=== PATIENT | male | born 1955 | race Caucasian/White ===

== ENCOUNTER 2017-01-10 11:21 | Emergency (ER) | payer OTHER ==
[2017-01-10 11:28] VITALS: BP 142/91; PULSE 87; RESP 20; TEMP 97.4
--- NOTE | 2017-01-10 12:39 | ED ---
Extremity Problem HPI - General Chief complaint: Extremity Injury, Lower Stated complaint: LEFT LEG PAIN Time Seen by Provider: 01/10/17 12:08 Source: patient Mode of arrival: ambulatory Limitations: no limitations - History of Present Illness Initial comments: Patient is a 61-year-old white male presenting to the emergency department with complains of left lower extremity swelling progressively getting worse over the last 4 days. Patient states that swelling causes pain particularly to his left calf when walking. No pain at rest. Patient states he had a full physical with his primary physician on Wednesday and was noted to have minimal swelling of his left knee. Patient was instructed to take Aleve as needed. Patient states that he twisted his knee in October of this year and was using a knee brace for a while but not recently. Patient denies recent trauma or injury to left lower extremity. Patient denies fevers, chills, nausea, vomiting, shortness of breath, chest pain, palpitations, or numbness or tingling. Patient denies recent travel or prolonged sitting. Patient denies history of congenital or familial blood clotting disorder. Patient reports history of skin cancer, removed. Patient has a remote history of smoking. MD Complaint: extremity pain, extremity swelling Onset/Timin -: days(s) Location: left, lower extremity History of Same: No Quality: aching Consistency: constant Improves with: nothing Worsens with: walking Associated Symptoms: denies other symptoms - Related Data Home Medications Medication Instructions Recorded Confirmed Cialis(Unkowndose) 1 tab PO PRN 03/22/14 03/26/14 Allergies Allergy/AdvReac Type Severity Reaction Status Date / Time No Known Allergies Allergy Verified 03/22/14 14:55 Review of Systems ROS Statement: Those systems with pertinent positive or pertinent negative responses have been documented in the HPI. ROS Other: All systems not noted in ROS Statement are negative. Past Medical History Past Medical History: No Reported History History of Any Multi-Drug Resistant Organisms: None Reported Past Surgical History: Back Surgery, Orthopedic Surgery Additional Past Surgical History / Comment(s): RT HAND SX TO REMOVE SCAR TISSUE Past Anesthesia/Blood Transfusion Reactions: No Reported Reaction Past Psychological History: No Psychological Hx Reported Smoking Status: Former smoker Past Alcohol Use History: None Reported Past Drug Use History: None Reported General Exam - General Exam Comments Initial Comments: GENERAL: Pt awake and alert, well-appearing, well-nourished, and in no acute distress. HEAD: Atraumatic, normocephalic. EYES: Pupils equal, round, and reactive to light, extraocular movements intact, sclera anicteric, conjunctiva are normal. ENT: Oropharynx clear without exudates. Moist mucous membranes. Tongue smooth, pink, no lesions, protrudes in midline. NECK:Normal range of motion, supple without lymphadenopathy or JVD. LUNGS: Breath sounds clear to auscultation bilaterally. No wheezes, rales, or rhonchi. HEART: Heart S1, S2, no S3 or S4. Regular rate and rhythm. No murmurs, rubs or gallops. ABDOMEN: Soft, nontender, nondistended, normoactive bowel sounds. No guarding, no rebound. No masses or organomegaly appreciated. EXTREMITIES: 2+ peripheral pulses. Left lower extremity 2+ edema from just below the knee to toe, warm to touch, with positive Homans sign. Left calf tenderness. Slight ecchymosis noted to left ankle. NEUROLOGICAL: Pt oriented x 3. No focal deficits noted. Strength and sensation grossly intact. PSYCH: Normal mood, normal affect. SKIN: Warm,dry, intact. Normal turgor. No rashes or lesions. Limitations: no limitations General appearance: alert, in no apparent distress Head exam: Present: atraumatic, normocephalic, normal inspection Eye exam: Present: normal appearance, PERRL ENT exam: Present: normal exam, normal oropharynx, mucous membranes moist, TM's normal bilaterally, normal external ear exam Neck exam: Present: normal inspection, full ROM Course Vital Signs 01/10/17 01/10/17 11:26 16:02 Temperature 97.4 F L 97.4 F L Pulse Rate 87 87 Respiratory 20 20 Rate Blood Pressure 142/91 142/91 O2 Sat by Pulse 97 97 Oximetry Medical Decision Making - Medical Decision Making Patient is a 61-year-old male presenting to the emergency department with complaints of increased lower left leg swelling over the last 4 days. Ultrasound Doppler negative for DVT. No acute fracture or dislocation noted on knee and tibia-fibula x-ray. Patient does have left knee effusion. Patient started to elevate left lower extremity above heart at rest. Patient instructed to follow-up with primary care physician. Patient examined by Dr. Espinosa who agrees with treatment plan. Patient started to return to the emergency department with new or worsening symptoms. Patient agrees with treatment plan. Discharge instructions and return parameters reviewed. 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 Underlying knee joint effusion. As read by radiologist, Dr. Mackenzie. X-ray tibia-fibula: Subcutaneous soft tissue edema is noted throughout the leg. No acute fracture, subluxation, or dislocation is identified. There is a corticated bone fragment 9 mm below the lateral malleolus compatible with remote injury. As read by radiologist, . Ultrasound of left lower extremity: No evidence for DVT. Disposition Clinical Impression: Leg edema, left Disposition: HOME SELF-CARE Condition: Good Instructions: Leg Edema (ED) Additional Instructions: Elevate leg above heart to decrease swelling. Follow-up with primary care physician as directed. Please return to the emergency department if symptoms do not improve or get worse such as increased pain, increased pressure, inability to ambulate, chest pain, shortness of breath, fevers, nausea, vomiting or any new or worsening symptoms. Referrals: Niecy Mathew MD [Primary Care Provider] - 1-2 days Time of Disposition: 15:58
--- NOTE | 2017-01-10 13:04 | XR ---
EXAMINATION TYPE: XR knee complete 3 views LT, XR tibia fibula 2 views LT DATE OF EXAM: 01/10/2017 12:48 PM COMPARISON: NONE HISTORY: 61-year-old male with knee pain after twisting injury and February, swelling for a few days. FINDINGS: Left knee: There is tricompartmental degenerative spurring with at least moderate narrowing of joint space in th e medial compartment. Underlying knee joint effusion is suggested. No acute fracture or dislocation. Extensor mechanism is intact. Tibia/fibula: Subcutaneous soft tissue edema is noted throughout the leg. No acute fracture, subluxation, or disloc ation is identified. There is a corticated bone fragment 9 mm below the lateral malleolus compatible with remote injury. IMPRESSION: 1. 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 2. Underlying knee joint effusion. If concern for internal derangement, MRI can be performed. 3. Left knee and tibia/fibula without acute osseous abnormality seen.
--- NOTE | 2017-01-10 14:14 | US ---
EXAMINATION TYPE: US venous doppler duplex LE LT DATE OF EXAM: 01/10/2017 12:25 PM COMPARISON: NONE CLINICAL HISTORY: 61-year-old male with pain. Left calf swelling. No blood thinners and no history of blood clots. SIDE PERFORMED: Left TECHNIQUE: The lower extremity deep venous system is examined utilizing real time linear array sonog an with graded compression, doppler sonography and color-flow sonography. FINDINGS: VESSELS IMAGED: External Iliac Vein (EIV) Common Femoral Vein Deep Femoral Vein Greater Saphenous Vein * Femoral Vein Popliteal Vein Small Saphenous Vein * Proximal Calf Veins (* superficial vessels) Left Leg: Appears negative for DVT IMPRESSION: No evidence of DVT within the left lower extremity imaged from the groin to the upper calf.
== END 2017-01-10 16:02 | disposition home or self-care (01) ==
LOC: EC 11:21
DX: R60.0 Localized edema (principal); M25.462 Effusion, left knee; M17.9 Osteoarthritis of knee, unspecified; Z87.891 Personal history of nicotine dependence
CPT/HCPCS: 99284

== ENCOUNTER → 2017-02-05 | Outpatient (CLI) | payer OTHER ==
--- NOTE | 2017-02-05 07:51 | MR ---
EXAMINATION TYPE: MR tib fib LT wo con DATE OF EXAM: 02/05/2017 6:43 AM COMPARISON: NONE HISTORY: lLeft lower leg pain Standard multiplanar, multisequence MRI departmental protocol Multiplanar, multisequence images of the left tibia and fibula were acquired. FINDINGS: There is large intramuscular tear of the medial gastrocnemius with large intramuscular hematoma. Hever kyaw measures 17 cm craniocaudal dimension by 4.6 cm transverse dimension by 7.4 cm AP dimension. The re is surrounding subcutaneous edema. No evidence for tendinous rupture. The surrounding muscular str uctures are grossly unremarkable without additional hematoma or fluid collection. Osseous structures demonstrate homogeneous bone marrow signal without evidence for bone marrow edema or fracture. Incide ntally there appears to be an oblique tear involving the medial meniscus posterior horn. There also a ppears to be at least a partial tear of the medial collateral ligament at its tibial insertion. IMPRESSION: 1. Intramuscular hematoma with tear of the medial gastrocnemius muscle. 2. Oblique tear posterior horn medial meniscus. 3. At least partial tear of the medial collateral ligament at its tibial insertion.
== END | disposition home or self-care (01) ==
LOC: RADMRIMAIN 05:45
PROVIDERS: ATTEND Orthopaedic Surgery
DX: S83.242A Other tear of medial meniscus, current injury, left knee, initial encounter (principal); S83.412A Sprain of medial collateral ligament of left knee, initial encounter; S86.812A Strain of other muscle(s) and tendon(s) at lower leg level, left leg, initial encounter; M79.81 Nontraumatic hematoma of soft tissue

== ENCOUNTER → 2024-04-25 | Outpatient (CLI) | payer MEDICARE | END | disposition home or self-care (01) | LOC: LABPRL 07:57 | PROVIDERS: ATTEND Family Medicine | CPT/HCPCS: 80053; 80061; 83036; 84443; 85025 ==